=== PATIENT | male | born 1955 | race Caucasian/White ===

== ENCOUNTER 2016-05-14 05:34 | Day surgery (SDC) | payer OTHER ==
[~2016-05-14 05:34] MED LIST: ADDERALL30 MG PO; ASA5GR PO; ASAB PO; COREG6 PO; EFFEX75 PO; HYZAAR 50/12.51 TAB PO; KLOR-CON 1010 MEQ PO; L20 PO; L40 PO; LISINOPRIL40 MG PO; MOBIC15 MG PO; NORV10 PO; NORV5 PO; OXYCON10 PO; PR25 PO; PRAVAC PO; PRIN20 PO; XANAX1 MG PO; [UNRECOGNIZED DRUG - OTHER] PO
== END 2016-05-14 16:11 | disposition home or self-care (01) ==
LOC: SDC 05:34
PROVIDERS: Orthopaedic Surgery
PROC: 3E0R3BZ Introduction of Anesthetic Agent into Spinal Canal, Percutaneous Approach (ICD-10-PCS; 2016-05-14)
PROC: 3E0R33Z Introduction of Anti-inflammatory into Spinal Canal, Percutaneous Approach (ICD-10-PCS; principal; 2016-05-14 07:30)
DX: M54.16 Radiculopathy, lumbar region (principal); F17.210 Nicotine dependence, cigarettes, uncomplicated; Z88.1 Allergy status to other antibiotic agents; I13.0 Hypertensive heart and chronic kidney disease with heart failure and stage 1 through stage 4 chronic kidney disease, or unspecified chronic kidney disease; N18.9 Chronic kidney disease, unspecified; I50.9 Heart failure, unspecified; F32.9 Major depressive disorder, single episode, unspecified; F41.9 Anxiety disorder, unspecified; F90.9 Attention-deficit hyperactivity disorder, unspecified type; Z98.890 Other specified postprocedural states; Z79.899 Other long term (current) drug therapy
CPT/HCPCS: J2250; J3010; Q9967